=== PATIENT | female | born 1985 | race Caucasian/White ===

== ENCOUNTER → 2020-07-14 | Outpatient (CLI) | payer BC ==
[~2020-07-14] MED LIST: DEXT30TA2 PO; IOHEXOL 240 MG/ML 50ML VIAL. PO ONE; IOHEXOL 300 MG/ML 100ML VIAL. IV ONE; LEVO50TA5 PO; METH-38 PO; METO-247 PO; TRIA50CA PO; diphenhydrAMINE HCL 25 MG CAPSULE PO ONE
--- NOTE | 2020-07-14 16:28 | KCIC ---
Exam: CT of abdomen and pelvis with contrast INDICATION: Right lower quadrant pain, intermittent pain for 6 months TECHNIQUE: Sequential axial images through the abdomen and pelvis obtained following the administration of 100 mL of Omni 300 IV contrast. Sagittal and coronal reformatted images were reconstructed from the axial data and reviewed. Comparisons: None FINDINGS: Heart size is normal. No pericardial effusion visualized lung bases are clear. No pleural effusion. Liver, spleen, pancreas, gallbladder and adrenals are unremarkable. No perinephric inflammation or hydronephrosis. No renal or ureteral calculi are identified. Bladder is decompressed not well evaluated. Uterus not enlarged. No 0.9 cm cystic lesion of the right adnexa. Large and small bowel are unremarkable. Appendix is normal. No free intra-abdominal air or fluid. No obstruction. Abdominal aorta has a normal course and caliber. Abdominal vasculature is patent. No enlarged intra-abdominal lymph nodes are identified. No suspicious osseous lesions or acute fractures. IMPRESSION: 1. A 1.9 cm cystic lesion at the right adnexa, likely dominant cyst in the right ovary incompletely evaluated on CT. 2. Diverticulosis without evidence of acute diverticulitis. Exposure: One or more of the following in the visualized dose reduction techniques were utilized for this examination: 1. Automated exposure control 2. Adjustment of the MA and/or KV according to patient size 3. Use of iterative of reconstructive technique Electronically signed by: Fatmata Gonzalez MD (07/14/2020 4:24 PM) [facility]
== END ==
LOC: KCIC CT 12:46
PROVIDERS: ATTEND Family Medicine
DX: K57.30 Diverticulosis of large intestine without perforation or abscess without bleeding (principal); N92.6 Irregular menstruation, unspecified
CPT/HCPCS: 74177; Q9966; Q9967